=== PATIENT | male | born 1960 | race Caucasian/White ===

== ENCOUNTER 2016-05-13 19:34 | Inpatient (IN) | payer SELFPAY ==
[~2016-05-13] VITALS: Ht 175.3 cm; Wt 55.0 kg
[~2016-05-13 19:34] MED LIST: EQ ASPIRIN325 M1 OR; KEFLEX500 MG OR; METOPROL TAR50 MG OR; NAPROSYN500 MG PO; NO HOME MEDS; PERCOCET 5/325M1 TAB OR; PLAVIX75 MG OR; PRAVASTATIN20 MG OR; PRINIVIL5 MG OR
[2016-05-13 20:03] LABS: HEMATOCRIT 41.4 % (39.0-50.0); HEMOGLOBIN 15.2 g/dl (14.0-18.0); MEAN CELL VOLUME 94.5 fL CALC (80.0-100.0); MEAN CORPUSCULAR HGB 34.7 pG CALC (26.0-32.0); MEAN CORPUSCULAR HGB CONC 36.7 g/L CALC (32.0-36.0); NEUT# 7.45 thou/uL (1.82-7.42); RED BLOOD COUNT 4.38 mill/uL (4.70-6.10); RED CELL DISTRI WIDTH 12.4 % (11.5-15.5)
[2016-05-13 20:27] LABS: ALBUMIN 3.4 g/dL (3.2-5.0); ALKALINE PHOSPHATASE 76 u/l (38-126); AMYLASE 176 u/l (30-110); ANION GAP 15 (6-22 (CALC)); BILIRUBIN, TOTAL 1.2 mg/dL (0.0-1.4); BUN 33 mg/dL (9-20); BUN/CREATININE RATIO 28 (12-20 (CALC)); CALCIUM 8.1 mg/dL (8.4-10.2); CARBON DIOXIDE 29 mmol/l (22-30); CHLORIDE 85 mmol/l (95-108); CREATININE 1.2 mg/dL (0.7-1.3); GFR > 60 ML/MIN (>=60 (CALC)); GFR FOR AFR.AMER. > 60 ML/MIN (>=60 (CALC)); GLUCOSE 114 mg/dL (75-110); LIPASE 402 u/l (23-300); POTASSIUM 4.1 mmol/l (3.5-5.1); SGOT/AST 376 u/l (17-59); SGPT/ALT 120 u/l (21-72); SODIUM 125 mmol/l (137-146); TOTAL PROTEIN 7.4 g/dL (6.3-8.2)
[2016-05-13 20:44] LABS: MYOGLOBIN 1014 ng/mL (0 - 121)
[2016-05-13 23:55] VITALS: BP 113/65
[2016-05-14 05:30] VITALS: BP 113/68
[2016-05-14 05:54] LABS: HEMOGLOBIN 13.1 g/dl (14.0-18.0); IMMATURE GRANULOCYTES 0.9 % (0.0-1.0); MEAN CELL VOLUME 95.7 fL CALC (80.0-100.0); MEAN CORPUSCULAR HGB 34.8 pG CALC (26.0-32.0); MEAN CORPUSCULAR HGB CONC 36.4 g/L CALC (32.0-36.0); NEUT# 4.01 thou/uL (1.82-7.42); RED BLOOD COUNT 3.76 mill/uL (4.70-6.10); RED CELL DISTRI WIDTH 12.8 % (11.5-15.5)
[2016-05-14 06:10] LABS: BUN 25 mg/dL (9-20); BUN/CREATININE RATIO 33 (12-20 (CALC)); CALCIUM 6.9 mg/dL (8.4-10.2); CARBON DIOXIDE 25 mmol/l (22-30); CREATININE 0.7 mg/dL (0.7-1.3); GFR > 60 ML/MIN (>=60 (CALC)); GFR FOR AFR.AMER. > 60 ML/MIN (>=60 (CALC)); GLUCOSE 107 mg/dL (75-110); POTASSIUM 3.9 mmol/l (3.5-5.1); SODIUM 127 mmol/l (137-146)
[2016-05-14 06:15] LABS: ANION GAP 10 (6-22 (CALC)); CHLORIDE 96 mmol/l (95-108)
[2016-05-14 07:47] VITALS: BP 111/55
[2016-05-14 07:56] LABS: URINE BILIRUBIN - DIPSTICK NEGATIVE (NEGATIVE); URINE BLOOD DIPSTICK MODERATE (NEGATIVE); URINE COLOR YELLOW; URINE GLUCOSE - DIPSTICK NEGATIVE (NEGATIVE); URINE KETONE NEGATIVE (NEGATIVE); URINE LEUK ESTERASE NEGATIVE (NEGATIVE); URINE NITRITE - DIPSTICK NEGATIVE (Negative); URINE PROTEIN - DIPSTICK 100 mg/dL (NEG-TRACE); URINE UROBILINOGEN - DIPSTICK >=8.0 E.U./dL (0.2)
[2016-05-14 07:59] LABS: URINE CLARITY SLIGHT CLOUDY
[2016-05-14 10:47] LABS: C. DIFFICILE TOXIN A&B NEGATIVE (NEGATIVE)
[2016-05-14 10:56] VITALS: BP 115/65
[2016-05-14 15:04] VITALS: BP 115/64
[2016-05-14 19:10] VITALS: BP 112/63
[2016-05-14 23:29] VITALS: BP 116/67
[2016-05-15 04:54] VITALS: BP 123/75
[2016-05-15 05:15] LABS: HEMATOCRIT 34.8 % (39.0-50.0); HEMOGLOBIN 12.5 g/dl (14.0-18.0); IMMATURE GRANULOCYTES 1.3 % (0.0-1.0); MEAN CELL VOLUME 96.4 fL CALC (80.0-100.0); MEAN CORPUSCULAR HGB 34.6 pG CALC (26.0-32.0); MEAN CORPUSCULAR HGB CONC 35.9 g/L CALC (32.0-36.0); NEUT# 3.67 thou/uL (1.82-7.42); RED BLOOD COUNT 3.61 mill/uL (4.70-6.10); RED CELL DISTRI WIDTH 13.1 % (11.5-15.5)
[2016-05-15 05:20] LABS: ALKALINE PHOSPHATASE 60 u/l (38-126); ANION GAP 9 (6-22 (CALC)); BILIRUBIN, TOTAL 0.8 mg/dL (0.0-1.4); BUN 14 mg/dL (9-20); BUN/CREATININE RATIO 23 (12-20 (CALC)); CALCIUM 7.1 mg/dL (8.4-10.2); CARBON DIOXIDE 24 mmol/l (22-30); CHLORIDE 101 mmol/l (95-108); CREATININE 0.6 mg/dL (0.7-1.3); GFR > 60 ML/MIN (>=60 (CALC)); GFR FOR AFR.AMER. > 60 ML/MIN (>=60 (CALC)); GLUCOSE 92 mg/dL (75-110); MAGNESIUM 1.9 mg/dL (1.6-2.3); POTASSIUM 3.9 mmol/l (3.5-5.1); SGOT/AST 185 u/l (17-59); SGPT/ALT 90 u/l (21-72); SODIUM 129 mmol/l (137-146); TOTAL PROTEIN 4.5 g/dL (6.3-8.2)
[2016-05-15 07:45] VITALS: BP 106/69
[2016-05-15 12:11] VITALS: BP 107/64
[2016-05-15 16:30] VITALS: BP 107/61
[2016-05-15 19:25] VITALS: BP 111/68
[2016-05-15 23:46] VITALS: BP 103/59
[2016-05-16 04:30] VITALS: BP 122/70
[2016-05-16 05:47] LABS: HEMATOCRIT 33.1 % (39.0-50.0); MEAN CELL VOLUME 95.4 fL CALC (80.0-100.0); MEAN CORPUSCULAR HGB 34.6 pG CALC (26.0-32.0); MEAN CORPUSCULAR HGB CONC 36.3 g/L CALC (32.0-36.0); NEUT# 4.86 thou/uL (1.82-7.42); RED BLOOD COUNT 3.47 mill/uL (4.70-6.10); RED CELL DISTRI WIDTH 13.1 % (11.5-15.5)
[2016-05-16 05:59] LABS: ALBUMIN 1.9 g/dL (3.2-5.0); BUN 13 mg/dL (9-20); CALCIUM 7.5 mg/dL (8.4-10.2); CARBON DIOXIDE 24 mmol/l (22-30); CHLORIDE 101 mmol/l (95-108); CREATININE 0.7 mg/dL (0.7-1.3); GFR > 60 ML/MIN (>=60 (CALC)); GFR FOR AFR.AMER. > 60 ML/MIN (>=60 (CALC)); GLUCOSE 89 mg/dL (75-110); POTASSIUM 3.8 mmol/l (3.5-5.1); SODIUM 130 mmol/l (137-146)
[2016-05-16 07:40] VITALS: BP 109/59
[2016-05-16 13:40] VITALS: BP 98/60
[2016-05-16 16:18] VITALS: BP 112/72
[2016-05-16 20:15] VITALS: BP 118/66
[2016-05-17 00:10] VITALS: BP 112/66
[2016-05-17 04:00] VITALS: BP 117/70
[2016-05-17 06:59] LABS: HEMATOCRIT 32.6 % (39.0-50.0); HEMOGLOBIN 11.7 g/dl (14.0-18.0); MEAN CELL VOLUME 95.6 fL CALC (80.0-100.0); MEAN CORPUSCULAR HGB 34.3 pG CALC (26.0-32.0); MEAN CORPUSCULAR HGB CONC 35.9 g/L CALC (32.0-36.0); NEUT# 4.8 thou/uL (1.82-7.42); RED BLOOD COUNT 3.41 mill/uL (4.70-6.10); RED CELL DISTRI WIDTH 13.2 % (11.5-15.5)
[2016-05-17 07:17] LABS: ALBUMIN 1.9 g/dL (3.2-5.0); ALKALINE PHOSPHATASE 58 u/l (38-126); ANION GAP 9 (6-22 (CALC)); BILIRUBIN, TOTAL 0.7 mg/dL (0.0-1.4); BUN 9 mg/dL (9-20); BUN/CREATININE RATIO 18 (12-20 (CALC)); CALCIUM 7.6 mg/dL (8.4-10.2); CARBON DIOXIDE 25 mmol/l (22-30); CHLORIDE 103 mmol/l (95-108); CREATININE 0.5 mg/dL (0.7-1.3); GFR > 60 ML/MIN (>=60 (CALC)); GFR FOR AFR.AMER. > 60 ML/MIN (>=60 (CALC)); GLUCOSE 91 mg/dL (75-110); POTASSIUM 3.7 mmol/l (3.5-5.1); SGOT/AST 83 u/l (17-59); SGPT/ALT 67 u/l (21-72); SODIUM 133 mmol/l (137-146); TOTAL PROTEIN 4.4 g/dL (6.3-8.2)
[2016-05-17 07:52] VITALS: BP 94/59
[2016-05-17 11:39] VITALS: BP 100/66
[2016-05-17 16:22] VITALS: BP 109/69
[2016-05-17] MEDS ORDERED: LEVAQUIN750 MG PO (16:35)
[2016-05-17] MEDS ORDERED: FLORASTOR250 M1 PO (16:35)
[2016-05-17] MEDS ORDERED: METRONIDAZOL500 MG PO (16:35)
== END 2016-05-17 19:30 | disposition home or self-care (01) | DRG 871 ==
LOC: ENPENDDIS → ED 19:34 → ED-I 22:01 → ED 22:25 → MS2 22:26
PROVIDERS: Emergency Medicine; ADMIT Internal Medicine; ATTEND Internal Medicine
DX: A41.9 Sepsis, unspecified organism (principal); J18.9 Pneumonia, unspecified organism; G93.41 Metabolic encephalopathy; E43 Unspecified severe protein-calorie malnutrition; N17.9 Acute kidney failure, unspecified; M62.82 Rhabdomyolysis; K86.0 Alcohol-induced chronic pancreatitis; E87.1 Hypo-osmolality and hyponatremia; Z68.1 Body mass index [BMI] 19.9 or less, adult; R65.20 Severe sepsis without septic shock; F10.20 Alcohol dependence, uncomplicated; F17.210 Nicotine dependence, cigarettes, uncomplicated; E86.0 Dehydration; I25.2 Old myocardial infarction

== ENCOUNTER 2016-11-13 11:43 | Emergency (ER) | payer BC ==
[~2016-11-13] VITALS: Ht 175.3 cm; Wt 60.0 kg
[~2016-11-13 11:43] MED LIST changes: +FLORASTOR250 M1 PO; +LEVAQUIN750 MG PO; +METRONIDAZOL500 MG PO
[2016-11-13 12:38] LABS: HEMATOCRIT 46.8 % (39.0-50.0); HEMOGLOBIN 16.6 g/dl (14.0-18.0); IMMATURE GRANULOCYTES 0.6 % (0.0-1.0); MEAN CELL VOLUME 100.9 fL CALC (80.0-100.0); MEAN CORPUSCULAR HGB 35.8 pG CALC (26.0-32.0); MEAN CORPUSCULAR HGB CONC 35.5 g/L CALC (32.0-36.0); NEUT# 2.89 thou/uL (1.82-7.42); RED BLOOD COUNT 4.64 mill/uL (4.70-6.10)
[2016-11-13 13:05] LABS: ALBUMIN 4.5 g/dL (3.2-5.0); ALKALINE PHOSPHATASE 87 u/l (38-126); AMYLASE 123 u/l (30-110); ANION GAP 20 (6-22 (CALC)); BILIRUBIN, TOTAL 0.5 mg/dL (0.0-1.4); BUN 9 mg/dL (9-20); BUN/CREATININE RATIO 12 (12-20 (CALC)); CALCIUM 9.4 mg/dL (8.4-10.2); CARBON DIOXIDE 23 mmol/l (22-30); CHLORIDE 104 mmol/l (95-108); CREATININE 0.7 mg/dL (0.7-1.3); GFR > 60 ML/MIN (>=60 (CALC)); GFR FOR AFR.AMER. > 60 ML/MIN (>=60 (CALC)); GLUCOSE 81 mg/dL (75-110); LIPASE 224 u/l (23-300); POTASSIUM 4.3 mmol/l (3.5-5.1); SGOT/AST 68 u/l (17-59); SGPT/ALT 46 u/l (21-72); SODIUM 143 mmol/l (137-146)
[2016-11-13 13:17] LABS: MYOGLOBIN 28 ng/mL (0 - 121)
[2016-11-13] MEDS ORDERED: EC-NAPROSYN500 MG PO (13:48)
[2016-11-13] MEDS ORDERED: TRAMADOL HYDROC50 MG PO (13:48)
[2016-11-13 13:55] VITALS: BP 143/83
== END 2016-11-13 14:07 | disposition home or self-care (01) | DRG 556 ==
LOC: ED 11:43
PROVIDERS: Emergency Medicine
DX: M79.1 Myalgia (principal); R11.0 Nausea

== ENCOUNTER 2018-03-01 21:24 | Emergency (ER) | payer BC ==
[~2018-03-01] VITALS: Ht 175.3 cm; Wt 59.0 kg
[~2018-03-01 21:24] MED LIST changes: +EC-NAPROSYN500 MG PO; +TRAMADOL HYDROC50 MG PO
[2018-03-01 21:44] LABS: HEMATOCRIT 48.3 % (39.0-50.0); HEMOGLOBIN 16.9 g/dl (14.0-18.0); IMMATURE GRANULOCYTES 0.4 % (0.0-5.0); MEAN CELL VOLUME 103.4 fL CALC (80.0-100.0); MEAN CORPUSCULAR HGB 36.2 pG CALC (26.0-32.0); NEUT# 6.48 thou/uL (1.82-7.42); RED BLOOD COUNT 4.67 mill/uL (4.70-6.10); RED CELL DISTRI WIDTH 11.9 % (11.5-15.5)
[2018-03-01 22:00] LABS: PROTHROMBIN TIME 10.4 SECONDS (9.0-12.5)
[2018-03-01 22:14] LABS: ALBUMIN 4.7 g/dL (3.2-5.0); ALKALINE PHOSPHATASE 79 u/l (38-126); ANION GAP 21 (6-22 (CALC)); BILIRUBIN, TOTAL 0.7 mg/dL (0.0-1.4); BUN 8 mg/dL (9-20); BUN/CREATININE RATIO 12 (12-20 (CALC)); CARBON DIOXIDE 22 mmol/l (22-30); CHLORIDE 99 mmol/l (95-108); CREATININE 0.7 mg/dL (0.7-1.3); GFR > 60 ML/MIN (>=60 (CALC)); GFR FOR AFR.AMER. > 60 ML/MIN (>=60 (CALC)); POTASSIUM 4.1 mmol/l (3.5-5.1); SGOT/AST 51 u/l (17-59); SODIUM 138 mmol/l (137-146); TOTAL PROTEIN 8.4 g/dL (6.3-8.2)
[2018-03-01 22:18] LABS: DIGOXIN < 0.4 ng/mL (0.8-2.0)
[2018-03-01 22:23] LABS: MYOGLOBIN 30 ng/mL (0 - 121)
[2018-03-01 22:32] VITALS: BP 129/77
== END 2018-03-01 22:12 | disposition short-term general hospital (02) | DRG 282 ==
LOC: ED 21:24
PROVIDERS: Emergency Medicine
DX: I21.3 ST elevation (STEMI) myocardial infarction of unspecified site (principal); I25.10 Atherosclerotic heart disease of native coronary artery without angina pectoris; I25.2 Old myocardial infarction; F17.210 Nicotine dependence, cigarettes, uncomplicated; Z95.5 Presence of coronary angioplasty implant and graft

== ENCOUNTER 2018-04-29 09:34 | Emergency (ER) | payer BC ==
[~2018-04-29] VITALS: Ht 175.3 cm; Wt 60.0 kg
[2018-04-29] MEDS ORDERED: DOXYCYC MONO100 M1 PO (10:17)
[2018-04-29 10:18] VITALS: BP 116/50
== END 2018-04-29 10:48 | disposition home or self-care (01) | DRG 563 ==
LOC: ED 09:34
DX: S96.911A Strain of unspecified muscle and tendon at ankle and foot level, right foot, initial encounter (principal); L03.115 Cellulitis of right lower limb; F17.200 Nicotine dependence, unspecified, uncomplicated; W17.2XXA Fall into hole, initial encounter